=== PATIENT | male | born 2000 | race Caucasian/White ===

== ENCOUNTER 2022-04-17 14:50 | Emergency (ER) | payer BC ==
[~2022-04-17] VITALS: Ht 177.8 cm; Wt 77.3 kg
[2022-04-17 15:09] VITALS: TEMP 98.3
[2022-04-17] MEDS ORDERED: NORCO 325 MG-51 TAB PO (17:11)
[2022-04-17] MEDS ORDERED: MOTRIN 800800 MG/TAB PO (17:11)
[2022-04-17] MEDS ORDERED: FLEXERIL 1010 MG/TAB PO (17:11)
[2022-04-17 17:21] VITALS: BP 118/80; PULSE 68
== END 2022-04-17 17:22 | disposition home or self-care (01) ==
LOC: COL.ER 14:50
DX: M54.16 Radiculopathy, lumbar region (principal); Z28.310 Unvaccinated for COVID-19; W18.30XA Fall on same level, unspecified, initial encounter; Y93.67 Activity, basketball